=== PATIENT | female | born 1990 | race African-American/Black ===

== ENCOUNTER 2021-01-26 20:35 | Emergency (ER) | payer SELFPAY ==
[~2021-01-26] VITALS: Ht 160 cm; Wt 68.0 kg
[2021-01-26] MEDS ORDERED: SERT25TA PO (21:25)
[2021-01-26] MEDS ORDERED: AZITHROMYCIN 250 MG TAB (ZITHROMAX) PO SCH (21:30)
[2021-01-26] MEDS ORDERED: cefTRIAXone FOR IV USE 1,000 MG in WATER (STERILE) FOR INJECTION 10 ML IV ONE (21:30)
[2021-01-26] MEDS ORDERED: KETOROLAC 30 MG/ML VIAL IVP ONE (21:30)
[2021-01-26 21:34] LABS: BASOPHILS # (AUTO) 0.1 10^3/uL (0.0-0.1); BASOPHILS % (AUTO) 1 % (0-10); EOSINOPHILS # (AUTO) 0.2 10^3/uL (0.0-0.3); EOSINOPHILS % (AUTO) 2 % (0-10); HEMATOCRIT 30 % (35-52); HEMOGLOBIN 9.3 g/dL (11.5-16.0); LYMPHOCYTES # (AUTO) 2.3 10^3/uL (1.0-4.0); LYMPHOCYTES % (AUTO) 18 % (12-44); MEAN CORPUSCULAR HEMOGLOBIN 20 pg (25-34); MEAN CORPUSCULAR HGB CONC 31 g/dL (32-36); MEAN CORPUSCULAR VOLUME 65 fL (80-99); MEAN PLATELET VOLUME 9.4 fL (9.0-12.2); MONOCYTES # (AUTO) 0.9 10^3/uL (0.0-1.0); MONOCYTES % (AUTO) 7 % (0-12); NEUTROPHILS % (AUTO) 72 % (42-75); PLATELET COUNT 479 10^3/uL (130-400); WHITE BLOOD COUNT 12.5 10^3/uL (4.3-11.0)
[2021-01-26 21:38] LABS: BILIRUBIN,URINE NEGATIVE (NEGATIVE); CLARITY,URINE SL CLOUDY; COLOR,URINE ORANGE; GLUCOSE, URINE (UA) NEGATIVE (NEGATIVE); KETONES,URINE NEGATIVE (NEGATIVE); LEUKOCYTE ESTERASE ,URINE 2+ (NEGATIVE); NITRITE,URINE NEGATIVE (NEGATIVE); PROTEIN,URINE 2+ (NEGATIVE)
[2021-01-26 21:42] LABS: ALBUMIN 4.2 GM/DL (3.2-4.5); CHLORIDE 106 MMOL/L (98-107); POTASSIUM 3.8 MMOL/L (3.6-5.0); SODIUM 141 MMOL/L (135-145)
--- NOTE | 2021-01-26 21:42 | ED Abdominal Pain ---
General Chief Complaint: Female Reproductive Stated Complaint: STD TX Nursing Triage Note: ABDOMINAL PAIN, PINK/WHITE DISCHARGE, CHILLS, FATIGUE. WANTS TESTED FOR CHLAMYDIA, GONORRHEA, HIV Sepsis Screen: No Definite Risk Source of Information: Patient Exam Limitations: No Limitations History of Present Illness Date Seen by Provider: Jan 26, 2021 Time Seen by Provider: 21:41 Initial Comments To ER with lower abdominal cramping chills fatigue whitish vaginal discharge. Believes she may have an STD. Timing/Duration: 1-2 Days Severity/Quality: Cramping Location: Suprapubic Radiation: No Radiation Activities at Onset: None Allergies and Home Medications Allergies Coded Allergies: latex (Verified Allergy, Unknown, 01/26/21) Home Medications Doxycycline Hyclate 100 Mg Tablet, 100 MG PO BID Prescribed by: RENE CORRALES on 01/26/212151 Metronidazole 500 Mg Tablet, 500 MG PO BID Prescribed by: RENE CORRALES on 01/26/212151 Patient Home Medication List Home Medication List Reviewed: Yes Review of Systems Review of Systems Constitutional: see HPI, chills EENTM: No Symptoms Reported Respiratory: No Symptoms Reported Cardiovascular: No Symptoms Reported Gastrointestinal: No Symptoms Reported Genitourinary: No Symptoms Reported Musculoskeletal: no symptoms reported Skin: no symptoms reported Psychiatric/Neurological: No Symptoms Reported Endocrine: No Symptoms Reported Hematologic/Lymphatic: No Symptoms Reported Past Czyoqjc-Ekmewt-Ykchns Hx Patient Social History Alcohol Use: Denies Use Smoking Status: Current Everyday Smoker Type Used: Cigarettes 2nd Hand Smoke Exposure: Yes Recent Infectious Disease Expo: No Recent Hopitalizations: No Immunizations Up To Date Tetanus Booster (TDap): Unknown Seasonal Allergies Seasonal Allergies: No Past Medical History Surgeries: Yes (GASTRIC SLEEVE, LEFT CYSTECTOMY) Section, Tonsillectomy Respiratory: No Cardiac: No Neurological: No : No Genitourinary: No Gastrointestinal: No Musculoskeletal: No Endocrine: No HEENT: No Cancer: No Psychosocial: Yes Anxiety, Depression Blood Disorders: No Physical Exam Vital Signs Vital Signs - First Documented 01/26/21 21:18 Temp 36.0 Pulse 77 Resp 18 B/P (MAP) 124/81 (95) Pulse Ox 100 O2 Delivery Room Air Capillary Refill : Less Than 3 Seconds Height/Weight/BMI Height: '" Weight: lbs. oz. kg; 26.00 BMI Method: General Appearance: WD/WN, no apparent distress Respiratory: no respiratory distress, no accessory muscle use Cardiovascular: regular rate, rhythm, no murmur Gastrointestinal: normal bowel sounds, soft, tenderness Extremities: normal range of motion, non-tender Neurologic/Psychiatric: alert, normal mood/affect, oriented x 3 Skin: normal color, warm/dry Progress/Results/Core Measures Results/Orders Lab Results Laboratory Tests Test 01/26/21 21:22 01/26/21 21:28 01/26/21 21:39 Range/Units Urine Color ORANGE Urine Clarity SL CLOUDY Urine pH 6.0 5-9 Urine Specific [place] >=1.030 1.016-1.022 Urine Protein 2+ H NEGATIVE Urine Glucose (UA) NEGATIVE NEGATIVE Urine Ketones NEGATIVE NEGATIVE Urine Nitrite NEGATIVE NEGATIVE Urine Bilirubin NEGATIVE NEGATIVE Urine Urobilinogen 1.0 < = 1.0 MG/DL Urine Leukocyte Esterase 2+ H NEGATIVE Urine RBC (Auto) 3+ H NEGATIVE Urine RBC 10-25 H /HPF Urine WBC 50-100 H /HPF Urine Crystals PRESENT H /LPF Urine Amorphous Sediment FEW MARCELLE URATES H /LPF Urine Bacteria TRACE /HPF Urine Casts NONE /LPF Urine Mucus NEGATIVE /LPF Urine Culture Indicated YES Urine Opiates Screen NEGATIVE NEGATIVE Urine Oxycodone Screen NEGATIVE NEGATIVE Urine Methadone Screen NEGATIVE NEGATIVE Urine Propoxyphene Screen NEGATIVE NEGATIVE Urine Barbiturates Screen NEGATIVE NEGATIVE Ur Tricyclic Antidepressants Screen NEGATIVE NEGATIVE Urine Phencyclidine Screen NEGATIVE NEGATIVE Urine Amphetamines Screen NEGATIVE NEGATIVE Urine Methamphetamines Screen NEGATIVE NEGATIVE Urine Benzodiazepines Screen NEGATIVE NEGATIVE Urine Cocaine Screen NEGATIVE NEGATIVE Urine Cannabinoids Screen NEGATIVE NEGATIVE White Blood Count 12.5 H 4.3-11.0 10^3/uL Red Blood Count 4.63 3.80-5.11 10^6/uL Hemoglobin 9.3 L 11.5-16.0 g/dL Hematocrit 30 L 35-52 % Mean Corpuscular Volume 65 L 80-99 fL Mean Corpuscular Hemoglobin 20 L 25-34 pg Mean Corpuscular Hemoglobin Concent 31 L 32-36 g/dL Red Cell Distribution Width 18.8 H 10.0-14.5 % Platelet Count 479 H 130-400 10^3/uL Mean Platelet Volume 9.4 9.0-12.2 fL Immature Granulocyte % (Auto) 0 % Neutrophils (%) (Auto) 72 42-75 % Lymphocytes (%) (Auto) 18 12-44 % Monocytes (%) (Auto) 7 0-12 % Eosinophils (%) (Auto) 2 0-10 % Basophils (%) (Auto) 1 0-10 % Neutrophils # (Auto) 9.0 H 1.8-7.8 10^3/uL Lymphocytes # (Auto) 2.3 1.0-4.0 10^3/uL Monocytes # (Auto) 0.9 0.0-1.0 10^3/uL Eosinophils # (Auto) 0.2 0.0-0.3 10^3/uL Basophils # (Auto) 0.1 0.0-0.1 10^3/uL Immature Granulocyte # (Auto) 0.0 0.0-0.1 10^3/uL Sodium Level 141 135-145 MMOL/L Potassium Level 3.8 3.6-5.0 MMOL/L Chloride Level 106 98-107 MMOL/L Carbon Dioxide Level 24 21-32 MMOL/L Anion Gap 11 5-14 MMOL/L Blood Urea Nitrogen 13 7-18 MG/DL Creatinine 0.77 0.60-1.30 MG/DL Estimat Glomerular Filtration Rate > 60 BUN/Creatinine Ratio 17 Glucose Level 90 70-105 MG/DL Calcium Level 9.3 8.5-10.1 MG/DL Corrected Calcium 9.1 8.5-10.1 MG/DL Total Bilirubin 0.2 0.1-1.0 MG/DL Aspartate Amino Transf (AST/SGOT) 14 5-34 U/L Alanine Aminotransferase (ALT/SGPT) 12 0-55 U/L Alkaline Phosphatase 86 40-136 U/L Total Protein 7.3 6.4-8.2 GM/DL Albumin 4.2 3.2-4.5 GM/DL Serum Test, Qualitative NEGATIVE NEGATIVE My Orders Orders - RENE CORRALES APRN Cbc With Automated Diff (01/26/21 21:23) Comprehensive Metabolic Panel (01/26/21 21:23) Ed Iv/Invasive Line Start (01/26/21 21:23) Hcg,Qualitative Serum (01/26/21 21:23) Wet Prep (01/26/21 21:23) Neisseria Gonorrhea Swab (01/26/21 21:23) Chlamydia Trachomatis Swab (01/26/21 21:23) Ua Culture If Indicated (01/26/21 21:29) Drug Screen Stat (Urine) (01/26/21 21:29) Ketorolac Injection (Toradol Injection) (01/26/21 21:30) Ceftriaxone For Iv Use (Rocephin For I (01/26/21 21:30) Azithromycin Tablet (Zithromax Tablet) (01/26/21 21:30) Ct Abdomen/Pelvis W (01/26/21 21:58) Urine Culture (01/26/21 21:22) Iohexol Injection (Omnipaque 350 Mg/Ml 1 (01/26/21 22:15) Received Contrast (Hold Metformin- Contr (01/26/21 22:15) Ns (Ivpb) (Sodium Chloride 0.9% Ivpb Bag (01/26/21 22:15) Medications Given in ED Current Medications Medications Dose Ordered Sig/Ann Route Start Time Stop Time Status Last Admin Dose Admin Ceftriaxone Sodium 1000 mg/ Sterile Water 10 ml @ 200 mls/hr ONCE ONCE IV 01/26/21 21:30 01/26/21 21:32 DC 01/26/21 21:43 200 MLS/HR Ketorolac Tromethamine 15 mg ONCE ONCE IVP 01/26/21 21:30 01/26/21 21:31 DC 01/26/21 21:43 15 MG Vital Signs/I&O 01/26/21 01/26/21 21:18 21:43 Temp 36.0 36.0 Pulse 77 Resp 18 B/P (MAP) 124/81 (95) Pulse Ox 100 O2 Delivery Room Air Blood Pressure Mean: 95 Departure Impression Primary Impression: Bacterial vaginosis Additional Impressions: Screening for STD (sexually transmitted disease) Urinary tract infection Disposition: 01 HOME, SELF-CARE Condition: Stable Departure-Patient Inst. Decision time for Depature: 21:50 Referrals: NO,LOCAL PHYSICIAN (PCP) Primary Care Physician Patient Instructions: Bacterial Vaginosis Add. Discharge Instructions: 1. Wish to have the STD results back within 2 to 3 days. Follow-up with your primary care provider for recheck. Take the antibiotics as directed. Abstain from any sexual intercourse 7 days after treatment. Your sexual partner should also be tested All discharge instructions reviewed with patient and/or family. Voiced understanding. Scripts Metronidazole (Flagyl) 500 Mg Tablet 500 MG PO BID, #14 TAB Prov: RENE CORRALES APRN 01/26/21 Doxycycline Hyclate (Doxycycline Hyclate) 100 Mg Tablet 100 MG PO BID, #20 TAB 0 Refills Prov: RENE CORRALES APRN 01/26/21 RENE CORRALES APRN Jan 26, 2021 21:42
[2021-01-26 21:43] LABS: CALCIUM 9.3 MG/DL (8.5-10.1)
[2021-01-26 21:44] LABS: GLUCOSE 90 MG/DL (70-105); TOTAL PROTEIN 7.3 GM/DL (6.4-8.2)
[2021-01-26 21:45] LABS: CARBON DIOXIDE 24 MMOL/L (21-32)
[2021-01-26 21:46] LABS: BILIRUBIN,TOTAL 0.2 MG/DL (0.1-1.0)
[2021-01-26 21:48] LABS: ALKALINE PHOSPHATASE 86 U/L (40-136); CREATININE SERUM 0.77 MG/DL (0.60-1.30); GFR ESTIMATED > 60
[2021-01-26 21:49] LABS: BUN/CREATININE RATIO 17
[2021-01-26 21:51] LABS: ALANINE AMINOTRANSFERASE 12 U/L (0-55)
[2021-01-26] MEDS ORDERED: METR500T PO (21:52)
[2021-01-26] MEDS ORDERED: DOXY100T2 PO (21:52)
[2021-01-26 21:53] LABS: AMPHETAMINE SCREEN, URINE NEGATIVE (NEGATIVE); BARBITURATE SCREEN URINE NEGATIVE (NEGATIVE); BENZODIAZEPINES SCREEN URINE NEGATIVE (NEGATIVE); CANNABINOID SCREEN, URINE NEGATIVE (NEGATIVE); COCAINE SCREEN URINE NEGATIVE (NEGATIVE); METHADONE STAT NEGATIVE (NEGATIVE); METHAMPHETAMINE SCREEN URINE S NEGATIVE (NEGATIVE); OPIATE SCREEN URINE NEGATIVE (NEGATIVE); OXYCODONE STAT NEGATIVE (NEGATIVE); PROPOXYPHENE STAT NEGATIVE (NEGATIVE); TRICYCLIC ANTIDEPRESSANTS SCRE NEGATIVE (NEGATIVE)
[2021-01-26 21:59] LABS: WBC,URINE 50-100 /HPF
[2021-01-26 22:01] LABS: AMORPHOUS SEDIMENT,UR FEW AMOR URATES /LPF; BACTERIA,URINE TRACE /HPF
[2021-01-26] MEDS ORDERED: IOHEXOL 350 MG/ML 100 ML (OMNIPAQUE 350) VIAL IV ONE (22:15)
[2021-01-26] MEDS ORDERED: NS 100 ML (IVPB) BAG IV ONE (22:15)
[2021-01-26] MEDS ORDERED: HOLD METFORMIN - RECEIVED CONTRAST 20 ML VIAL IV SCH (22:15)
[2021-01-26 22:33] VITALS: BP 122/79
--- NOTE | 2021-01-27 07:22 | Diagnostic Imaging Report ---
PROCEDURE: CT abdomen and pelvis with contrast. TECHNIQUE: Multiple contiguous axial images were obtained through the abdomen and pelvis after administration of intravenous contrast. Auto Exposure Controls were utilized during the CT exam to meet ALARA standards for radiation dose reduction. All CT scans use one or more of the following dose optimizing techniques: automated exposure control, MA and/or KvP adjustment based on patient size and exam type or iterative reconstruction. Indication: Left lower quadrant pain. Comparison: 12/21/2019. Discussion: The lung bases are well-aerated. Normal heart size. No pleural or pericardial fluid. Postoperative changes are again noted along the stomach. The liver, gallbladder, pancreas, spleen, and adrenal glands are unremarkable. No renal stone, mass, or hydronephrosis. Mild constipation. Follicular activity is noted within the left ovary which could account for pain though otherwise appears benign. No obstruction, pneumatosis, or pneumoperitoneum. Mild constipation. No ascites or adenopathy. No acute osseous abnormality identified. Impression: 1. No acute abnormality within the abdomen or pelvis. Mild constipation is noted. 2. Incidental note of follicular activity within the left ovary which could account for pain. 3. Agree with preliminary report. Dictated by: Dictated on workstation # [id number]
== END 2021-01-26 22:33 | disposition home or self-care (01) ==
LOC: ER 20:37
DX: N76.0 Acute vaginitis (principal); N39.0 Urinary tract infection, site not specified; F17.210 Nicotine dependence, cigarettes, uncomplicated; Z11.3 Encounter for screening for infections with a predominantly sexual mode of transmission; Z91.040 Latex allergy status
CPT/HCPCS: 36415; 74177; 80053; 80306; 81000; 84703; 85025; 87077; 87088; 87210; 87491; 87591

== ENCOUNTER 2021-04-24 13:45 | Emergency (ER) | payer SELFPAY ==
[~2021-04-24] VITALS: Ht 160 cm; Wt 65.0 kg
[~2021-04-24 13:45] MED LIST: DOXY100T2 PO; METR500T PO; SERT25TA PO
[2021-04-24] MEDS ORDERED: LACTATED RINGERS 1,000 ML IV SCH (14:00)
[2021-04-24 14:08] LABS: BASOPHILS % (AUTO) 0 % (0-10); EOSINOPHILS # (AUTO) 0.1 10^3/uL (0.0-0.3); EOSINOPHILS % (AUTO) 2 % (0-10); HEMATOCRIT 27 % (35-52); HEMOGLOBIN 8.3 g/dL (11.5-16.0); LYMPHOCYTES % (AUTO) 14 % (12-44); MEAN CORPUSCULAR HEMOGLOBIN 19 pg (25-34); MEAN CORPUSCULAR HGB CONC 30 g/dL (32-36); MEAN CORPUSCULAR VOLUME 64 fL (80-99); MEAN PLATELET VOLUME 9.4 fL (9.0-12.2); MONOCYTES # (AUTO) 0.6 10^3/uL (0.0-1.0); MONOCYTES % (AUTO) 9 % (0-12); NEUTROPHILS # (AUTO) 5.1 10^3/uL (1.8-7.8); NEUTROPHILS % (AUTO) 75 % (42-75); PLATELET COUNT 333 10^3/uL (130-400); WHITE BLOOD COUNT 6.8 10^3/uL (4.3-11.0)
--- NOTE | 2021-04-24 14:11 | ED General ---
General Stated Complaint: HEAT EXHAUSTION Source of Information: Patient Exam Limitations: No Limitations (ERNE CORRALES APRN) History of Present Illness Date Seen by Provider: Apr 24, 2021 Time Seen by Provider: 14:08 Initial Comments To ER with concerns of heat exhaustion. She was evicted a few weeks ago and has been living on the streets since then. She is generally fatigued and is concerned she might have heat related illness. 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 Timing/Duration: 1-2 Days Severity: Moderate Associated Systoms: Denies Symptoms (RENE CORRALES APRN) Allergies and Home Medications Allergies Coded Allergies: latex (Verified Allergy, Unknown, 01/26/21) Home Medications Doxycycline Hyclate 100 Mg Tablet, 100 MG PO BID Prescribed by: RENE CORRALES on 01/26/212151 Metronidazole 500 Mg Tablet, 500 MG PO BID Prescribed by: RENE CORRALES on 01/26/212151 Patient Home Medication List Home Medication List Reviewed: Yes (RENE CORRALES APRN) Review of Systems Review of Systems Constitutional: see HPI, malaise, weakness EENTM: see HPI Respiratory: no symptoms reported Cardiovascular: no symptoms reported Genitourinary: no symptoms reported Musculoskeletal: no symptoms reported Skin: no symptoms reported Psychiatric/Neurological: No Symptoms Reported Hematologic/Lymphatic: No Symptoms Reported Immunological/Allergic: no symptoms reported (RENE CORRALES APRN) Past Rsvwxbg-Agxfwc-Sckcrm Hx Immunizations Up To Date Tetanus Booster (TDap): Unknown (RENE CORRALES APRN) Seasonal Allergies Seasonal Allergies: No (RENE CORRALES APRN) Past Medical History Surgeries: Yes (GASTRIC SLEEVE, LEFT CYSTECTOMY) Section, Tonsillectomy Respiratory: No Cardiac: No Neurological: No Genitourinary: No Gastrointestinal: No Musculoskeletal: No Endocrine: No HEENT: No Cancer: No Psychosocial: Yes Anxiety, Depression Blood Disorders: No (RENE CORRALES APRN) Physical Exam Vital Signs Vital Signs - First Documented 04/24/21 14:21 Temp 36.8 Pulse 86 Resp 16 B/P (MAP) 108/70 (83) Pulse Ox 100 O2 Delivery Room Air (RYAN QUEEN MD) Vital Signs Capillary Refill : (RENE CORRALES APRN) Height, Weight, BMI Height: '" Weight: lbs. oz. kg; 26.00 BMI Method: General Appearance: No Apparent Distress, WD/WN Eyes: Bilateral Eye Normal Inspection, Bilateral Eye PERRL, Bilateral Eye EOMI HEENT: PERRL/EOMI, TMs Normal Neck: Full Range of Motion, Normal Inspection Respiratory: No Accessory Muscle Use, No Respiratory Distress Cardiovascular: Regular Rate, Rhythm, Normal Peripheral Pulses Gastrointestinal: Normal Bowel Sounds, Non Tender, Soft Extremity: Normal Capillary Refill, Normal Inspection Neurologic/Psychiatric: Alert, Oriented x3, No Motor/Sensory Deficits Skin: Normal Color, Warm/Dry (RENE CORRALES APRN) Progress/Results/Core Measures Suspected Sepsis SIRS Temperature: Pulse: Respiratory Rate: Laboratory Tests 04/24/21 14:00: White Blood Count 6.8 Blood Pressure / Mean: Laboratory Tests 04/24/21 14:00: Creatinine 0.66, Platelet Count 333, Total Bilirubin 0.1 (RENE CORRALES APRN) Results/Orders Lab Results Laboratory Tests Test 04/24/21 14:00 04/24/21 15:20 Range/Units White Blood Count 6.8 4.3-11.0 10^3/uL Red Blood Count 4.30 3.80-5.11 10^6/uL Hemoglobin 8.3 L 11.5-16.0 g/dL Hematocrit 27 L 35-52 % Mean Corpuscular Volume 64 L 80-99 fL Mean Corpuscular Hemoglobin 19 L 25-34 pg Mean Corpuscular Hemoglobin Concent 30 L 32-36 g/dL Red Cell Distribution Width 18.8 H 10.0-14.5 % Platelet Count 333 130-400 10^3/uL Mean Platelet Volume 9.4 9.0-12.2 fL Immature Granulocyte % (Auto) 0 % Neutrophils (%) (Auto) 75 42-75 % Lymphocytes (%) (Auto) 14 12-44 % Monocytes (%) (Auto) 9 0-12 % Eosinophils (%) (Auto) 2 0-10 % Basophils (%) (Auto) 0 0-10 % Neutrophils # (Auto) 5.1 1.8-7.8 10^3/uL Lymphocytes # (Auto) 1.0 1.0-4.0 10^3/uL Monocytes # (Auto) 0.6 0.0-1.0 10^3/uL Eosinophils # (Auto) 0.1 0.0-0.3 10^3/uL Basophils # (Auto) 0.0 0.0-0.1 10^3/uL Immature Granulocyte # (Auto) 0.0 0.0-0.1 10^3/uL Sodium Level 138 135-145 MMOL/L Potassium Level 3.8 3.6-5.0 MMOL/L Chloride Level 106 98-107 MMOL/L Carbon Dioxide Level 21 21-32 MMOL/L Anion Gap 11 5-14 MMOL/L Blood Urea Nitrogen 12 7-18 MG/DL Creatinine 0.66 0.60-1.30 MG/DL Estimat Glomerular Filtration Rate 127 BUN/Creatinine Ratio 18 Glucose Level 98 70-105 MG/DL Calcium Level 8.3 L 8.5-10.1 MG/DL Corrected Calcium 8.5 8.5-10.1 MG/DL Total Bilirubin 0.1 0.1-1.0 MG/DL Aspartate Amino Transf (AST/SGOT) 15 5-34 U/L Alanine Aminotransferase (ALT/SGPT) 13 0-55 U/L Alkaline Phosphatase 63 40-136 U/L Total Creatine Kinase 85 29-168 U/L Total Protein 6.4 6.4-8.2 GM/DL Albumin 3.8 3.2-4.5 GM/DL Serum Test, Qualitative NEGATIVE NEGATIVE Smear Scan YES Urine Color ORANGE Urine Clarity CLOUDY Urine pH 5.5 5-9 Urine Specific [place] >=1.030 1.016-1.022 Urine Protein 1+ H NEGATIVE Urine Glucose (UA) NEGATIVE NEGATIVE Urine Ketones TRACE H NEGATIVE Urine Nitrite NEGATIVE NEGATIVE Urine Bilirubin NEGATIVE NEGATIVE Urine Urobilinogen 0.2 < = 1.0 MG/DL Urine Leukocyte Esterase NEGATIVE NEGATIVE Urine RBC (Auto) 3+ H NEGATIVE Urine RBC >100 H /HPF Urine WBC 2-5 /HPF Urine Squamous Epithelial Cells 5-10 /HPF Urine Crystals NONE /LPF Urine Bacteria MODERATE H /HPF Urine Casts NONE /LPF Urine Mucus SMALL H /LPF Urine Culture Indicated YES Urine Opiates Screen NEGATIVE NEGATIVE Urine Oxycodone Screen NEGATIVE NEGATIVE Urine Methadone Screen NEGATIVE NEGATIVE Urine Propoxyphene Screen NEGATIVE NEGATIVE Urine Barbiturates Screen NEGATIVE NEGATIVE Ur Tricyclic Antidepressants Screen NEGATIVE NEGATIVE Urine Phencyclidine Screen NEGATIVE NEGATIVE Urine Amphetamines Screen POSITIVE H NEGATIVE Urine Methamphetamines Screen POSITIVE H NEGATIVE Urine Benzodiazepines Screen NEGATIVE NEGATIVE Urine Cocaine Screen NEGATIVE NEGATIVE Urine Cannabinoids Screen NEGATIVE NEGATIVE (RYAN QUEEN MD) Vital Signs/I&O 04/24/21 04/24/21 14:21 16:00 Temp 36.8 Pulse 86 112 Resp 16 73 B/P (MAP) 108/70 (83) 112/73 Pulse Ox 100 99 O2 Delivery Room Air Room Air (RYAN QUEEN MD) Vital Signs/I&O Capillary Refill : (RENE CORRALES APRN) Departure Impression Primary Impression: Heat exhaustion Additional Impression: Anemia Disposition: HOME, SELF-CARE Condition: Stable Departure-Patient Inst. Decision time for Depature: 14:11 (RENE CORRALES APRN) Referrals: NO,LOCAL PHYSICIAN (PCP) Primary Care Physician Patient Instructions: Heat Illness ED Add. Discharge Instructions: 1. Would be a good idea to take [id number] iron supplement given your low hemoglobin and microcytic hypochromic appearance of your red cells. Follow-up with primary care. ATTENDING PHYSICIAN NOTE: I was physically present as attending physician in the emergency department during the care of this patient, but I was not directly involved in the decision making or delivery of care for this patient. (RYAN QUEEN MD) RENE CORRALES APRN Apr 24, 2021 14:11 RYAN QUEEN MD Apr 25, 2021 06:54
[2021-04-24 14:20] LABS: ALBUMIN 3.8 GM/DL (3.2-4.5)
[2021-04-24 14:21] LABS: POTASSIUM 3.8 MMOL/L (3.6-5.0)
[2021-04-24 14:22] LABS: CALCIUM 8.3 MG/DL (8.5-10.1)
[2021-04-24 14:23] LABS: TOTAL PROTEIN 6.4 GM/DL (6.4-8.2)
[2021-04-24 14:25] LABS: BILIRUBIN,TOTAL 0.1 MG/DL (0.1-1.0)
[2021-04-24 14:27] LABS: CREATININE SERUM 0.66 MG/DL (0.60-1.30); SMEAR SCAN COMMENT YES
[2021-04-24 15:26] LABS: CLARITY,URINE CLOUDY; COLOR,URINE ORANGE; GLUCOSE, URINE (UA) NEGATIVE (NEGATIVE); KETONES,URINE TRACE (NEGATIVE); LEUKOCYTE ESTERASE ,URINE NEGATIVE (NEGATIVE); NITRITE,URINE NEGATIVE (NEGATIVE); PH,URINE 5.5 (5-9); PROTEIN,URINE 1+ (NEGATIVE)
[2021-04-24 15:40] LABS: BENZODIAZEPINES SCREEN URINE NEGATIVE (NEGATIVE); COCAINE SCREEN URINE NEGATIVE (NEGATIVE)
[2021-04-24 15:41] LABS: AMPHETAMINE SCREEN, URINE POSITIVE (NEGATIVE); BARBITURATE SCREEN URINE NEGATIVE (NEGATIVE); CANNABINOID SCREEN, URINE NEGATIVE (NEGATIVE); METHADONE STAT NEGATIVE (NEGATIVE); METHAMPHETAMINE SCREEN URINE S POSITIVE (NEGATIVE); OPIATE SCREEN URINE NEGATIVE (NEGATIVE); OXYCODONE STAT NEGATIVE (NEGATIVE); PROPOXYPHENE STAT NEGATIVE (NEGATIVE); TRICYCLIC ANTIDEPRESSANTS SCRE NEGATIVE (NEGATIVE)
[2021-04-24 15:53] LABS: BILIRUBIN,URINE NEGATIVE (NEGATIVE)
[2021-04-24 15:54] LABS: BACTERIA,URINE MODERATE /HPF; RBC,URINE >100 /HPF
[2021-04-24 16:00] VITALS: BP 112/73
== END 2021-04-24 16:00 | disposition home or self-care (01) ==
LOC: EDUNIT# 13:45 → ER 13:47
DX: T67.5XXA Heat exhaustion, unspecified, initial encounter (principal); D64.9 Anemia, unspecified
CPT/HCPCS: 36415; 80053; 80306; 81000; 82550; 84703; 85025; 87088